=== PATIENT | female | born 1950 | race Caucasian/White ===

== ENCOUNTER → 2018-05-10 | Outpatient (CLI) | payer MEDICARE | LOC: RAD 10:00 | PROVIDERS: ATTEND Internal Medicine | DX: I35.0 Nonrheumatic aortic (valve) stenosis (principal) | CPT/HCPCS: 93306 ==

== ENCOUNTER 2018-09-26 10:23 | Inpatient (IN) | payer MEDICARE, OTHER ==
[~2018-09-26] VITALS: Ht 152.4 cm; Wt 80.0 kg
[2018-09-26] MEDS ORDERED: TRAMADOL HCL 50 MG TAB PO NR (11:00)
[2018-09-26 11:54] LABS: BASOPHILS # (AUTO) 0.1 (0.0-0.1); BASOPHILS % 0.5 % (0.0-1.0); EOSINOPHILS # (AUTO) 0.5 (0.0-0.4); EOSINOPHILS % 3.4 % (0.0-6.0); HEMOGLOBIN 11.3 g/dL (12.0-16.0); LYMPHOCYTES # (AUTO) 1.8 (1.0-3.2); LYMPHOCYTES % 11.6 % (18.0-39.1); MEAN CORPUSCULAR HEMOGLOBIN 27.2 pg (28-32); MEAN CORPUSCULAR HGB CONC 31.4 g/dL (31-35); MEAN CORPUSCULAR VOLUME 86.7 fL (81-99); MONOCYTES # (AUTO) 1.2 (0.2-0.8); MONOCYTES % 7.8 % (4.4-11.3); NEUTROPHILS % 75.5 % (38.7-80.0); PLATELET COUNT 347 x10e3/uL (140-360); RED BLOOD COUNT 4.15 x10e6/uL (3.6-5.1); RED CELL DISTRIBUTION WIDTH 15.6 % (11.7-14.4)
[2018-09-26 12:03] LABS: INR 0.97; PROTHROMBIN TIME 13.8 seconds (11.9-14.5)
[2018-09-26 12:04] LABS: PARTIAL THROMBOPLASTIN TIME 27.4 seconds (23.8-35.5)
[2018-09-26 12:10] LABS: ALBUMIN 3.5 g/dL (3.5-5.0); ALBUMIN/GLOBULIN RATIO 1.1 (0.8-2.0); ANION GAP 17.2 mmol/L (8-16); MAGNESIUM 1.7 MG/DL (1.3-2.1); POTASSIUM 4.2 mmol/L (3.5-5.1)
[2018-09-26] MEDS ORDERED: SODIUM CHLORIDE 0.9% 500ML 500 ML IV ONE (12:30)
[2018-09-26 12:31] LABS: B-TYPE NATRIURETIC PEPTIDE2 79.7 pg/mL (0-100)
[2018-09-26 12:34] LABS: CREATINE KINASE MB 0.8 ng/mL (0-5.0); THYROID STIMULATING HORMONE 1.459 uIU/mL (0.350-4.940)
--- NOTE | 2018-09-26 12:37 | NUR ---
LAB CALLED-- LACTIC ACID 24.6. DR. CALLAWAY INFORMED
[2018-09-26 13:08] LABS: CLARITY,URINE CLEAR (CLEAR); COLOR,URINE YELLOW (YELLOW)
[2018-09-26 13:09] LABS: BACTERIA,URINE RARE /HPF; BILIRUBIN,URINE NEGATIVE (NEGATIVE); KETONES,URINE NEGATIVE (NEGATIVE); LEUKOCYTE ESTERASE ,URINE NEGATIVE (NEGATIVE); NITRITE,URINE NEGATIVE (NEGATIVE); PROTEIN,URINE DIPSTICK NEGATIVE (NEGATIVE); URINE UROBILINOGEN 0.2 mg/dL (0.2 - 1)
[2018-09-26 13:10] LABS: EPITHELIAL CELLS,URINE RARE /LPF
--- NOTE | 2018-09-26 13:43 | NUR ---
[facility] SPOKE WITHJamilah YIN, SECURITY OPERATIONS CENTER ANALYST TO INITIATE TRANFER
--- NOTE | 2018-09-26 14:04 | Diagnostic Imaging Report ---
Examination: CT head without contrast Clinical Indication: Fall.. Technique: Transaxial noncontrast images from the skull base through the vertex were obtained. Sagittal and coronal reformatted images were done. Dose modulation, iterative reconstruction, and/or weight based adjustment of the mA/kV was utilized to reduce the radiation dose to as low as reasonably achievable. Comparison: None. Findings: Scalp: No abnormalities. Bones: Intact. There is a well-circumscribed, hazy lesion within the left frontal calvarium, measuring 1 cm and most probably represents a hemangioma. There are no additional similar lesions. There is bifrontal intervertebral hyperostosis. No fractures. No blastic or lytic lesions. Brain sulci: Mild volume loss for patient's age. Ventricles: No hydrocephalus. Extra-axial space: No abnormalities. Parenchyma: There are mild confluent areas of low-attenuation within subcortical and periventricular white matter, nonspecific, but could represent microvascular ischemic disease. No masses, hemorrhage, or acute or chronic cortical based vascular insults. Suprasellar region: No abnormalities. Craniocervical junction: The foramen magnum is patent. No Chiari one malformation. Impression: 1. No acute intracranial finding. 2. Mild chronic microvascular ischemic change and mild volume loss. Signed by: Dr. Nel Irby M.D. on 09/26/2018 2:01 PM
--- NOTE | 2018-09-26 14:23 | Diagnostic Imaging Report ---
Examination: CT CERVICAL SPINE WITHOUT CONTRAST HISTORY:Neck injury after fall. COMPARISON:None. TECHNIQUE: Multidetector helical axial images were obtained without contrast from the foramen magnum to T1. Coronal and sagittal reformatted images were done. Bone and soft tissue windows were evaluated. Dose modulation, iterative reconstruction, and/or weight based adjustment of the mA/kV was utilized to reduce the radiation dose to as low as reasonably achievable. FINDINGS: Alignment:Normal alignment and lordosis. Vertebrae: Normal height and density. No acute fracture or infection. There are several areas of lytic lesions involving the clivus/bases sphenoid, right occipital condyle, and C2 through T2 (vertebral body and posterior elements). Disc space heights: Normal height. Caliber of spinal canal: Developmentally normal. Posterior fossa and craniocervical junction: Foramen magnum patent. No Chiari 1 malformation. Soft tissues: No abnormality. Degenerative changes: No disc herniation or canal stenosis. Visualized lung apices: Moderate sized right pleural effusion. IMPRESSION: 1. No acute abnormalities. 2. Multiple lytic bone metastases or myeloma, as above. Signed by: Dr. Nel Irby M.D. on 09/26/2018 2:19 PM
--- NOTE | 2018-09-26 14:32 | Diagnostic Imaging Report ---
ADDENDUM #1 Addendum: Multiple lytic lesions involving the thoracic vertebral bodies, suggestive of metastasis or myeloma. No evidence of fracture. Signed by: Dr. Orion Nesbitt MD on 09/26/2018 2:36 PM ORIGINAL REPORT EXAM: CT Chest WITH contrast INDICATION: Fall COMPARISON: None TECHNIQUE: Chest was scanned utilizing a multidetector helical scanner from the lung apex through the level of the adrenal glands without administration of IV contrast. Coronal and sagittal reformations were obtained. Routine protocol was performed. IV CONTRAST: 100 mL of Isovue 370. RADIATION DOSE: Total DLP: 2092 mGy*cm COMPLICATIONS: None FINDINGS: LINES/ TUBES: None. LUNGS AND AIRWAYS: The central airways are patent. Patchy atelectasis adjacent to right-sided pleural effusion. Diffuse motion artifact limits evaluation for lung nodules. There are scattered bilateral 3 to 4 mm groundglass and solid pulmonary nodules. Groundglass nodules are present in the dependent bilateral upper lobes and along the major fissures. Clustered nodules are present in the dependent right upper lobe on series 12, image 63. There is a 5.5 mm mm solid pulmonary nodule in the middle lobe on series 12, image 68. PLEURA: There is a moderate right pleural effusion and trace left pleural effusion. HEART AND MEDIASTINUM: The thyroid gland is normal. No mediastinal, hilar or axillary lymphadenopathy. No pericardial effusion. Coronary atherosclerosis. Scattered Atherosclerotic calcifications of the thoracic aorta and branch vessels. Dilated main pulmonary artery measuring up to 3 cm. UPPER ABDOMEN: Please refer to the concurrently performed abdominal CT for details of intraabdominal findings. BONES AND SOFT TISSUES: There are subacute, nondisplaced size rib fractures, involving the right lateral second, third, fourth, posterior lateral and anterior sixth ribs. There are likely nondisplaced fractures involving the left lateral fifth and sixth ribs. There is nonspecific lytic and sclerotic appearance of the ribs, for example on axial series 10, image 17. IMPRESSION: Somewhat limited evaluation for bony trauma. Likely non-displaced acute left lateral fifth and sixth rib fractures. Multiple subacute healing right-sided rib fractures. Moderate right and trace left pleural effusion with associated atelectatic changes. Multiple mixed lytic sclerotic lesions in bilateral ribs, suggestive of metastases or myeloma. Multiple bilateral ground glass and clustered nodules, likely infectious or inflammatory. Bilateral pulmonary nodules measuring less than 6 mm. If there is a history of smoking or other risk factor for malignancy, an optional chest CT in 12 months may be considered. Please refer to the concurrently performed abdominal CT for details of intraabdominal findings. Signed by: Dr. Orion Nesbitt MD on 09/26/2018 2:29 PM
--- NOTE | 2018-09-26 14:33 | NUR ---
REPORT CALLED TO CHRISTELLE WLIKES AT [facility]--[phone]; FOR THIS PATIENT TO BE TX.
[2018-09-26] MEDS ORDERED: SODIUM CHLORIDE 0.9% 50ML 50 ML ONE (14:42)
[2018-09-26] MEDS ORDERED: IOPAMIDOL 370 MG/ML 200 ML INFUS..BTL INJ ONE (14:42)
--- NOTE | 2018-09-26 14:44 | Diagnostic Imaging Report ---
ADDENDUM #1 ADDENDUM: Dose modulation, iterative reconstruction, and/or weight based adjustment of the mA/kV was utilized to reduce the radiation dose to as low as reasonably achievable. Signed by: Dr. Orion Nesbitt MD on 09/26/2018 5:24 PM ORIGINAL REPORT EXAM: CT Abdomen and Pelvis WITH contrast INDICATION: Fall COMPARISON: None. TECHNIQUE: Abdomen and pelvis were scanned utilizing a multidetector helical scanner from the lung base to the pubic symphysis after administration of IV contrast. Coronal and sagittal reformations were obtained. Routine protocol was performed. Scan was performed when during portal venous phase. RADIATION DOSE: Total DLP: 2092 mGy*cm CTDIvol has been reviewed. It is below the limits set by the Radiation Protocol Committee (RPC). FINDINGS: LINES and TUBES: None. LOWER THORAX: Please refer to the concurrently performed chest CT. HEPATOBILIARY: No evidence of focal lesion. No biliary ductal dilation. GALLBLADDER: No radio-opaque stones or sludge. No wall thickening. SPLEEN: No splenomegaly. PANCREAS: No focal masses or ductal dilatation. ADRENALS: No adrenal nodules KIDNEYS/URETERS: Kidneys enhance symmetrically. No evidence of hydronephrosis, solid mass, or stone. GI TRACT: No evidence of wall thickening or distension. Appendix is normal. PELVIC ORGANS/BLADDER: Unremarkable. LYMPH NODES: No lymphadenopathy. VESSELS: Moderate atherosclerotic changes of the abdominal aorta and branch vessels. PERITONEUM / RETROPERITONEUM: No free air or fluid. BONES AND SOFT TISSUES: Multiple lytic lesions involving the lower thoracic and lumbar vertebral bodies without evidence of fracture. CONCLUSION: No acute traumatic abnormality in the abdomen or pelvis. Multiple lytic lesions involving lower thoracic and lumbar vertebral bodies, suggestive of metastases or myeloma. No evidence of fracture. Signed by: Dr. Orion Nesbitt MD on 09/26/2018 2:40 PM
--- NOTE | 2018-09-26 15:01 | NUR ---
PER JOSE JUAN DAVIS. HE IS CALLING TO SPEAK TO AT [facility]. HU[place]REY, FLAME BURNER AWARE. SPOKE WITH ARLYN AT [facility] TO HALT TRANSPORT.
--- NOTE | 2018-09-26 15:15 | NUR ---
RADIOLOGIST [facility] IN [place] SPEAKING WITH DR. CALLAWAY REGARDING RADIOLOGY REPORT Addendum: 09/26/18 at 1516 by KETAN SPOKE WITH TRANSFER CENTER, CANCELED TRANSFER
[2018-09-26] MEDS ORDERED: ONDANSETRON HCL INJ 2MG/ML 2ML 2 MG/ML VIAL IV PRN (17:00)
[2018-09-26] MEDS ORDERED: SODIUM CHLORIDE 0.9% 1000ML 1,000 ML IV ONE (17:00)
--- NOTE | 2018-09-26 17:09 | Diagnostic Imaging Report ---
FEMUR 2 VIEWS MINIMUM LEFT - 5 views HISTORY: Fall COMPARISON: None available. FINDINGS: Bones: No acute displaced fracture. Osseous alignment is within normal limits. Joints: Degenerative changes of the left hip. Soft tissues: The soft tissues appear unremarkable. IMPRESSION: No acute fracture or dislocation of the left femur. Signed by: Dr. Thad Patel MD on 09/26/2018 5:06 PM
[2018-09-26] MEDS ORDERED: LASIX20 MG PO (17:12)
[2018-09-26] MEDS ORDERED: RISPERIDONE1 MG PO (17:12)
[2018-09-26] MEDS ORDERED: BUSPIRONE HCL5 MG PO (17:12)
[2018-09-26] MEDS ORDERED: LOVASTATIN20 MG PO (17:12)
[2018-09-26] MEDS ORDERED: LABETALOL HCL100 MG PO (17:12)
[2018-09-26] MEDS ORDERED: FLUOXETINE HCL20 MG PO (17:12)
[2018-09-26] MEDS ORDERED: METFORMIN HCL500 MG PO (17:12)
[2018-09-26] MEDS ORDERED: LISINOPRIL2.5 MG PO (17:12)
[2018-09-26] MEDS ORDERED: PANTOPRAZOLE SO40 MG PO (17:12)
--- OUTSIDE RECORDS SUMMARY | 2018-09-26 17:19 | XMS REPORT ---
[facility] Address Unknown Phone Unavailable Care Team Providers Care Fun House Operator Name Role Phone Aristides CALLAWAY Unavailable Unavailable Problems This patient has no known problems. Allergies, Adverse Reactions, Alerts This patient has no known allergies or adverse reactions. Medications This patient has no known medications. Results Test Description Test Time Test Comments Text Results Atomic Results Result Comments FEMUR 2 VIEWS MINIMUM LEFT 2018-09-26 17:04:00 [facility] [address] [address] Patient Name: JASMYN SAMPSON MR #: [id number] : 1950 Age/Sex: 67/F Req #: [id number] Adm Physician: Ordered by: SADIA CALLAWAY MD Report #: [id number] Location: ER Room/Bed: Procedure: [id number] DX/FEMUR 2 VIEWS MINIMUM LEFT Exam Date: Exam Time: REPORT STATUS: Signed FEMUR 2 VIEWS MINIMUM LEFT - 5 views HISTORY: Fall COMPARISON: None available. FINDINGS: Bones: No acute displaced fracture. Osseous alignment is within normal limits. Joints: Degenerative changes of the left hip. Soft tissues: The soft tissues appear unremarkable. IMPRESSION: No acute fracture or dislocation of the left femur. Signed by: Dr. Thad Salazar MD on 09/26/2018 5:06 PM Dictated By: THAD SALAZAR MD 05 Transcribed By: FABIANA on 09/26/181705 COPY TO: SADIA CALLAWAY MD CT ABDOMEN/PELVIS W 2018-09-26 14:26:00 [address] [address] Patient Name: JASMYN SAMPSON MR #: [id number] : 1950 Age/Sex: 67/F Req #: [id number] Adm Physician: Ordered by: MARVEL MARTIN NP Report #: [id number] Location: ER Room/Bed: Procedure: [id number] CT/CT ABDOMEN/PELVIS W Exam Date: Exam Time: REPORT STATUS: Signed EXAM: CT Abdomen and Pelvis WITH contrast INDICATION: Fall COMPARISON: None. TECHNIQUE: Abdomen and pelvis were scanned utilizing a multidetector helical scanner from the lung base to the pubic symphysis after administration of IV contrast. Coronal and sagittal reformations were obtained. Routine protocol was performed. Scan was performed when during portal venous phase. RADIATION DOSE: Total DLP: 2092 mGy*cm CTDIvol has been reviewed. It is below the limits set by the Radiation Protocol Committee (RPC). FINDINGS: LINES and TUBES: None. LOWER THORAX: Please refer to the concurrently performed chest CT. HEPATOBILIARY: No evidence of focal lesion. No biliary ductal dilation. GALLBLADDER: No radio-opaque stones or sludge. No wall thickening. SPLEEN: No splenomegaly. PANCREAS: No focal masses or ductal dilatation. ADRENALS: No adrenal nodules KIDNEYS/URETERS: Kidneys enhance symmetrically. No evidence of hydronephrosis, solid mass, or stone. GI TRACT: No evidence of wall thickening or distension. Appendix is normal. PELVIC ORGANS/BLADDER: Unremarkable. LYMPH NODES: No lymphadenopathy. VESSELS: Moderate atherosclerotic changes of the abdominal aorta and branch vessels. PERITONEUM / RETROPERITONEUM: No free air or fluid. BONES AND SOFT TISSUES: Multiple lytic lesions involving the lower thoracic and lumbar vertebral bodies without evidence of fracture. CONCLUSION: No acute traumatic abnormality in the abdomen or pelvis. Multiple lytic lesions involving lower thoracic and lumbar vertebral bodies, suggestive of metastases or myeloma. No evidence of fracture. Signed by: Dr. Kim Duarte MD on 09/26/2018 2:40 PM Dictated By: KIM DUARTE MD 1440 Transcribed By: FABIANA on 09/26/18 1440 COPY TO: MARVEL MARTIN DRUM SEALER CT CHEST W 2018-09-26 14:11:00 [address] [address] Patient Name: JASMYN SAMPSON MR #: [id number] : 1950 Age/Sex: 67/F Req #: [id number] Adm Physician: Ordered by: MARVEL MARTIN DRUM SEALER Report #: [id number] Location: ER Room/Bed: Procedure: [id number] CT/CT CHEST W Exam Date: Exam Time: REPORT STATUS: Signed ADDENDUM #1 Addendum: Multiple lytic lesions involvi ng the thoracic vertebral bodies, suggestive of metastasis or myeloma. No evidence of fracture. Signed by: Dr. Kim Duarte MD on 09/26/2018 2:36 PM ORIGINAL REPORT EXAM: CT Chest WITH contrast INDICATION: Fall COMPARISON: None TECHNIQUE: Chest was scanned utilizing a multidetector helical scanner from the lung apex through the level of the adrenal glands without administration of IV contrast. Coronal and sagittal reformations were obtained. Routine protocol was performed. IV CONTRAST: 100 mL of Isovue 370. RADIATION DOSE: Total DLP: 2092 mGy*cm COMPLICATIONS: None FINDINGS: LINES/ TUBES: None. LUNGS AND AIRWAYS: The central airways are patent. Patchy atelectasis adjacent to right-sided pleural effusion. Diffuse motion artifact limits evaluation for lung nodules. There are scattered bilateral 3 to 4 mm groundglass and solid pulmonary nodules. Groundglass nodules are present in the dependent bilateral upper lobes and along the major fissures. Clustered nodules are present in the dependent right upper lobe on series 12, image 63. There is a 5.5 mm mm solid pulmonary nodule in the middle lobe on series 12, image 68. PLEURA: There is a moderate right pleural effusion and trace left pleural effusion. HEART AND MEDIASTINUM: The thyroid gland is normal. No mediastinal, hilar or axillary lymphadenopathy. No pericardial effusion. Coronary atherosclerosis. Scattered Atherosclerotic calcifications of the thoracic aorta and branch vessels. Dilated main pulmonary artery measuring up to 3 cm. UPPER ABDOMEN: Please refer to the concurrently performed abdominal CT for details of intraabdominal findings. BONES AND SOFT TISSUES: There are subacute, nondisplaced size rib fractures, involving the right lateral second, third, fourth, posterior lateral and anterior sixth ribs. There are likely nondisplaced fractures involving the left lateral fifth and sixth ribs. There is nonspecific lytic and sclerotic appearance of the ribs, for example on axial series 10, image 17. IMPRESSION: Somewhat limited evaluation for bony trauma. Likely non-displaced acute left lateral fifth and sixth rib fractures. Multiple subacute healing right-sided rib fractures. Moderate right and trace left pleural effusion with associated atelectatic changes. Multiple mixed lytic sclerotic lesions in bilateral ribs, suggestive of metastases or myeloma. Multiple bilateral ground glass and clustered nodules, likely infectious or inflammatory. Bilateral pulmonary nodules measuring less than 6 mm. If there is a history of smoking or other risk factor for malignancy, an optional chest CT in 12 months may be considered. Please refer to the concurrently performed abdominal CT for details of intraabdominal findings. Signed by: Dr. Kim Duarte MD on 09/26/2018 2:29 PM Dictated By: KIM DUARTE MD 1431 Transcribed By: FABIANA on 09/26/18 1421 COPY TO: MARVEL MARTIN NP CT CERVICAL SPINE WO 2018-09-26 14:02:00 [address] [address] Patient Name: JASMYN SAMPSON MR #: [id number] : 1950 Age/Sex: 67/F Req #: [id number] Adm Physician: Ordered by: MARVEL MARTIN DRUM SEALER Report #: [id number] Location: ER Room/Bed: Procedure: [id number] CT/CT CERVICAL SPINE WO Exam Date: Exam Time: REPORT STATUS: Signed Examination: CT CERVICAL SPINE WITHOUT CONTRAST HISTORY:Neck inju ry after fall. COMPARISON:None. TECHNIQUE: Multidetector helical axial images were obtained without contrast from the foramen magnum to T1. Coronal and sagittal reformatted images were done. Bone and soft tissue windows were evaluated. Dose modulation, iterative reconstruction, and/or weight based adjustment of the mA/kV was utilized to reduce the radiation dose to as low as reasonably achievable. FINDINGS: Alignment:Normal alignment and lordosis. Vertebrae: Normal height and density. No acute fracture or infection. There are several areas of lytic lesions involving the clivus/bases sphenoid, right occipital condyle, and C2 through T2 (vertebral body and posterior elements). Disc space heights: Normal height. Caliber of spinal canal: Developmentally normal. Posterior fossa and craniocervical junction: Foramen magnum patent. No Chiari 1 malformation. Soft tissues: No abnormality. Degenerative changes: No disc herniation or canal stenosis. Visualized lung apices: Moderate sized right pleural effusion. IMPRESSION: 1. No acute abnormalities. 2. Multiple lytic bone metastases or myeloma, as above. Signed by: Dr. Nel Irby M.D. on 09/26/2018 2:19 PM Dictated By: NEL MCWILLIAMS MD 18 Transcribed By: FABIANA on 09/26/181418 COPY TO: MARVEL MARTIN NP CT BRAIN WO 2018-09-26 13:56:00 [facility] [address] [address] Patient Name: JASMYN SAMPSON MR #: [id number] : 1950 Age/Sex: 67/F Req #: [id number] Adm Physician: Ordered by: MARVEL MARTIN NP Report #: [id number] Location: ER Room/Bed: Procedure: [id number] CT/CT BRAIN WO Exam Date: Exam Time: REPORT STATUS: Signed Examination: CT head without contrast Clinical Indication: Fall.. Technique : Transaxial noncontrast images from the skull base through the vertex were obtained. Sagittal and coronal reformatted images were done. Dose modulation, iterative reconstruction, and/or weight based adjustment of the mA/kV was utilized to reduce the radiation dose to as low as reasonably achievable. Comparison: None. Findings: Scalp: No abnormalities. Bones: Intact. There is a well-circumscribed, hazy lesion within the left frontal calvarium, measuring 1 cm and most probably represents a hemangioma. There are no additional similar lesions. There is bifrontal intervertebral hyperostosis. No fractures. No blastic or lytic lesions. Brain sulci: Mild volume loss for patient's age. Ventricles: No hydrocephalus. Extra-axial space: No abnormalities. Parenchyma: There are mild confluent areas of low- attenuation within subcortical and periventricular white matter, nonspecific, but could represent microvascular ischemic disease. No masses, hemorrhage, or acute or chronic cortical based vascular insults. Suprasellar region: No abnormalities. Craniocervical junction: The foramen magnum is patent. No Chiari one malformation. Impression: 1. No acute intracranial finding. 2. Mild chronic microvascular ischemic change and mild volume loss. Signed by: Dr. Nel Irby M.D. on 09/26/2018 2:01 PM Dictated By: NEL MCWILLIAMS MD 1401 Transcribed By: FABIANA on 09/26/18 1401 COPY TO: MARVEL MARTIN NP
[2018-09-26] MEDS: ACETAMINOPHEN 325 MG TAB PO PRN ×2 (17:30→23:34)
[2018-09-26 20:30] VITALS: BP 152/68
--- NOTE | 2018-09-26 20:30 | NUR ---
Patient received via stretcher, accompanied by family members. Admission history obtained from patient's sister. Initial physical assessment completed. Patient is AAO x 3. No complaints of pain. No signs of respiratory distress. IVF infusing at 75 cc / hr. Wade catheter draining pale clear yellow urine, Patient oriented to room , call light and plan of care. Bed locked and in lowest position. Bed rails up x 2. Patient instructed to call for assistance when needed. Call light within reach.
[2018-09-26 20:45] VITALS: BP 152/68
[2018-09-26 20:45] LABS: CREATINE KINASE MB 0.7 ng/mL (0-5.0)
--- NOTE | 2018-09-26 22:05 | NUR ---
Patient complained of pain to her left lower leg . Dr. Mensah notified. New order received.
[2018-09-27] VITALS (8 sets, daily range): BP systolic 116–164; BP diastolic 54–71
[2018-09-27] MEDS: HYDROCODONE/APAP 10MG-325MG TAB PO PRN ×3 (00:10→20:09)
--- NOTE | 2018-09-27 03:30 | NUR ---
Blood specimen sent to lab for analysis of cardiac enzymes.
[2018-09-27 04:30] LABS: CREATINE KINASE MB 0.7 ng/mL (0-5.0)
[2018-09-27 04:48] LABS: ALANINE AMINOTRANSFERASE 9 IU/L (0-55); ALBUMIN 2.9 g/dL (3.5-5.0); ALKALINE PHOSPHATASE 83 IU/L (40-150); ANION GAP 13.3 mmol/L (8-16); BLOOD UREA NITROGEN 15 mg/dL (7-26); BUN/CREATININE RATIO 19 (6-25); CALCIUM 9.1 mg/dL (8.4-10.2); CARBON DIOXIDE 26 mmol/L (22-29); CHLORIDE 99 mmol/L (98-107); CREATININE, SERUM 0.77 mg/dL (0.57-1.11); EST GLOMERULAR FILTRATION RATE > 60 ML/MIN (60-); GLUCOSE 162 mg/dL (74-118); SODIUM 135 mmol/L (136-145)
[2018-09-27 04:54] LABS: POTASSIUM 3.3 mmol/L (3.5-5.1)
[2018-09-27] MEDS ORDERED: DEXTROSE 50% SYRINGE 50 ML IV PRN (05:30)
[2018-09-27 05:35] LABS: BASOPHILS # (AUTO) 0.1 (0.0-0.1); BASOPHILS % 0.5 % (0.0-1.0); EOSINOPHILS # (AUTO) 0.4 (0.0-0.4); EOSINOPHILS % 3.9 % (0.0-6.0); LYMPHOCYTES # (AUTO) 2.4 (1.0-3.2); MEAN CORPUSCULAR HEMOGLOBIN 26.8 pg (28-32); MEAN CORPUSCULAR HGB CONC 30.3 g/dL (31-35); MEAN CORPUSCULAR VOLUME 88.5 fL (81-99); MONOCYTES # (AUTO) 1.4 (0.2-0.8); MONOCYTES % 12.9 % (4.4-11.3); NEUTROPHILS # (AUTO) 6.7 (2.1-6.9); NEUTROPHILS % 59.8 % (38.7-80.0); PLATELET COUNT 290 x10e3/uL (140-360); RED BLOOD COUNT 3.73 x10e6/uL (3.6-5.1); RED CELL DISTRIBUTION WIDTH 15.6 % (11.7-14.4)
--- NOTE | 2018-09-27 07:00 | NUR ---
SHIFT REPORT RECEIVED FROM NIGHT RN. PT DENIES NEEDS AT THIS TIME.
--- NOTE | 2018-09-27 07:28 | NUR ---
Shift report given to oncoming nurse. Patient resting comfortably.
[2018-09-27] MEDS: FUROSEMIDE 20 MG TAB PO SCH ×2 (08:18→17:15)
[2018-09-27] MEDS: METFORMIN HCL 500 MG TAB PO SCH ×2 (08:18→17:15)
[2018-09-27] MEDS: BUSPIRONE HCL 5 MG TAB PO SCH ×2 (08:18→17:15)
[2018-09-27] MEDS: PANTOPRAZOLE SOD 40 MG TABEC PO SCH (08:19)
[2018-09-27] MEDS: LISINOPRIL 2.5 MG TAB PO SCH (08:19)
[2018-09-27] MEDS: INSULIN REGULAR, HUMAN 100 UNIT/1 ML 3ML VIAL SQ SCH ×4 (08:19→21:00)
[2018-09-27] MEDS: LABETALOL HCL 100 MG TAB PO SCH ×2 (08:19→17:16)
[2018-09-27] MEDS: FLUOXETINE HCL 20 MG CAP PO SCH (08:19)
--- NOTE | 2018-09-27 11:00 | NUR ---
FAMILY MEMBERS FEELING THERE IS NOTHING BEING DONE. CALLED DR. BECKWITH FOR PT ORDERS.
--- NOTE | 2018-09-27 12:37 | NUR ---
CALLED AND SPOKE TO DR. MCCARTHY ABOUT CONSULT. HE WILL SEE PT THIS AFTERNOON. COMMUNICATED THIS TO THE FAMILY IN THE ROOM.
[2018-09-27 14:26] LABS: CREATINE KINASE MB 0.7 ng/mL (0-5.0)
--- NOTE | 2018-09-27 14:47 | NUR ---
Trail Maintenance Worker to bedside to discuss plan of care with patient/family. CM/SW role and care transitions discussed. Anticipated discharge plan discussed along with duration of care. CM/SW discussed patients right to make decisions in care. CM/SW work hours given. CM spoke with pt's sister and brother in law at bedside. They both have POA and the brother in law is also pt's regulatory attorney. Pt has developmental delay. Patient lives: alone in a Snf Facility ([place] [facility]) Admit/Transfer: thru ED, from home POA/Emergency contact: Brother in law Chandan Garcia [phone] and sister Penny Cunningham [phone] Current/Previous Home Health: previously had home health for PT/ST, but Chandan states he feels like there was no change in pt's status afterwards PCP/Follow-up Care: Dr. Mensah Current/Previous DME: [employer]; also has canes at home Other Services: has a provider that comes in 4 hrs a day M-F; pt is with her sister and brother in law on the weekends. Employment Status: unemployed Areas of Concerns: falls Referral Needs: may need home health or SNF. PT ordered to eval/treat Education Needs: safety IMM/ARNETT given and signed (if applicable): none at this time Goal for discharge: ideally, return home; but family is opened to SNF if needed, pending PT evaluation. CM/SW left business card at the bedside with contact information. Name and number was also written on the patients whiteboard. Patient verbalized understanding of discussion. CM will follow-up with ongoing discharge and transition of care needs.
--- NOTE | 2018-09-27 16:00 | NUR ---
PT'S FAMILY STILL UNHAPPY WITH CARE. ASKED SALINA LARRY(RN PERIOPERATIVE) TO SPEAK WITH PT'S FAMILY MEMBERS. DR. MCCARTHY ARRIVED ALSO TO VISIT WITH FAMILY MEMBERS. DR. MCCARTHY ASKED THIS NURSE TO HAVE CASE MANAGEMENT SEE PT AND FAMILY EARLY TO ARRANGE SNF PLACEMENT FOR THE PT.
--- NOTE | 2018-09-27 18:00 | NUR ---
THIS NURSE SPOKE TO PT'S FAMILY TO CONFIRM WISHES FOR SNF PLACEMENT. CONFIRMATION WAS GIVEN. THIS COMMUNICATION WAS FORWARD TO DR. BECKWITH BY SALINA (AUTOMATIC COIN MACHINE MECHANIC).
[2018-09-27] MEDS: RISPERIDONE 1 MG TAB PO SCH (18:53)
--- NOTE | 2018-09-27 19:26 | NUR ---
Patient received lying in bed. AAO x 3. Patient had no complaints of pain. Respirations even and non-labored. Bed locked and in lowest position. Bed rails up x 2. Patient instructed to call for assistance when needed. Call light within reach.
[2018-09-28] VITALS (7 sets, daily range): BP systolic 135–162; BP diastolic 62–71
[2018-09-28] MEDS: HYDROCODONE/APAP 10MG-325MG TAB PO PRN ×2 (04:22→20:01)
[2018-09-28] MEDS: INSULIN REGULAR, HUMAN 100 UNIT/1 ML 3ML VIAL SQ SCH ×4 (08:15→21:10)
--- NOTE | 2018-09-28 09:00 | NUR ---
MET WITH BROTHER IN LAW WHOM WAS CONCERNED ABOUT THE DIFFERENT LEVEL OF PLACEMENT OPPORTUNITIES AVAILABLE FOR HIS SISTER THAT HE HAS POA OVER. HE STATES SHE LIVES IN HUD HOUSING FOR SENIORS AND IDD WITH A PROVIDER FOR APPROX 19 HOURS A WEEK WHICH WAS DROPPED FROM 28. HE STATES THAT HE UNDERSTANDS THAT SHE WILL NEED SNF. EDUCATED ABOUT BORDERER CARE VERSES SNF. GAVE SENIOR RESOURCE GUIDE AND OPTION IN THE LOCAL AREA. EXPLAINED MEDICAID PENDING AND THE PROCESS. HE HAS CONCERNS THAT SHE WILL NOT RETAIN ANY INFORMATION FOR THERAPY. HE WILL GO TO THE DIFFERENT FACILITIES AND DECIDE ON WHICH ONE HE WOULD LIKE CLINICALS SENT. SPENT AN HOUR AND A HALF SPEAKING WITH HIM AND EDUCATING ON THE PROCESSES.
--- NOTE | 2018-09-28 10:00 | Consultation ---
DATE OF CONSULTATION: September 27, 2018 Consultation was requested by Dr. Kenneth Mensah. Thank you very kindly, Dr. Mensah for letting me participate in the care of this pleasant 67-year-old female whom I had seen in the past in the office. I saw her yesterday in consultation, had a lengthy visit with the family. As you are well aware, she is mentally challenged and is under the guardianship of her sister and [id number]. She was diagnosed with carcinoma of the right breast in 2000. She had surgery at [facility]. I do not have her original pathology report. It was reported that she had 1 microscopic positive node. She received postop adjuvant tamoxifen for 3 years, and in 2003 was switched to letrozole, which she took for 5 years. She had remained clinically free of disease and her last followup was nearly 2 years ago. Other comorbidities besides her limited mental faculties are diabetes and obesity. She was admitted to the hospital as she was unable to walk, it appears mostly from pain. Additional details of the history are as documented in the chart. PHYSICAL EXAMINATION: GENERAL: Revealed an obese female who appeared comfortable in bed. VITAL SIGNS: As recorded in the chart. HEENT: There was no palpable peripheral adenopathy. CHEST: Right chest wall was clear. Left breast was negative. ABDOMEN: Obese. No areas of point tenderness were noted in the bones. EXTREMITIES: She was able to move all extremities in bed. IMAGING STUDIES: Showed extensive skeletal changes consistent with metastasis. ASSESSMENT: The radiographic studies by CT are highly suggestive of metastatic disease, which is also consistent with the natural history of breast cancer, which can relapse many years later. Prognosis is guarded, but poor over the long run. Generally, skeletal metastasis in estrogen receptor positive patients is responsive to relatively simple antiestrogenic hormonal therapy. Given her mental status and her difficult social situation, which compromises intensive followup, simple strategy of treatment with fulvestrant and estrogen receptor degrading agent injected once a month and generally very well tolerated would be a simple strategy along with bone strengthening medication like denosumab. I have discussed this with the family, which is her sister and [id number]. She had been living in a senior citizen's facility, but presently would not be able to take care of herself and would require placement. Thank you for letting me participate in her care and I will follow the patient after discharge. Job#: [id number]
[2018-09-28] MEDS: FLUOXETINE HCL 20 MG CAP PO SCH (10:20)
[2018-09-28] MEDS: PANTOPRAZOLE SOD 40 MG TABEC PO SCH (10:20)
[2018-09-28] MEDS: LISINOPRIL 2.5 MG TAB PO SCH (10:20)
[2018-09-28] MEDS: LABETALOL HCL 100 MG TAB PO SCH ×2 (10:20→17:52)
[2018-09-28] MEDS: BUSPIRONE HCL 5 MG TAB PO SCH ×2 (10:20→17:52)
[2018-09-28] MEDS: FUROSEMIDE 20 MG TAB PO SCH ×2 (10:20→17:52)
[2018-09-28] MEDS: METFORMIN HCL 500 MG TAB PO SCH ×2 (10:20→17:52)
--- NOTE | 2018-09-28 19:27 | NUR ---
Patient received lying in bed. AAO x 3. Patient denies pain at this time. Wade catheter draining pale clear yellow urine. Fall precautions maintained. Patient instructed to call for assistance when needed. Call light within reach.
[2018-09-28] MEDS: RISPERIDONE 1 MG TAB PO SCH (21:00)
[2018-09-29] VITALS: BP 158/68
[2018-09-29 04:00] VITALS: BP 157/70
--- NOTE | 2018-09-29 07:20 | NUR ---
Patient resting comfortably. Shift report given to oncoming nurse.
[2018-09-29 08:01] VITALS: BP 169/72
[2018-09-29] MEDS: INSULIN REGULAR, HUMAN 100 UNIT/1 ML 3ML VIAL SQ SCH ×4 (08:30→21:00)
[2018-09-29] MEDS: ACETAMINOPHEN 325 MG TAB PO PRN (09:00)
[2018-09-29] MEDS: FLUOXETINE HCL 20 MG CAP PO SCH (09:20)
[2018-09-29] MEDS: METFORMIN HCL 500 MG TAB PO SCH ×2 (09:20→16:58)
[2018-09-29] MEDS: LISINOPRIL 2.5 MG TAB PO SCH (09:20)
[2018-09-29] MEDS: PANTOPRAZOLE SOD 40 MG TABEC PO SCH (09:20)
[2018-09-29] MEDS: FUROSEMIDE 20 MG TAB PO SCH ×2 (09:20→16:58)
[2018-09-29] MEDS: BUSPIRONE HCL 5 MG TAB PO SCH ×2 (09:20→16:58)
[2018-09-29] MEDS: LABETALOL HCL 100 MG TAB PO SCH ×2 (09:20→16:58)
--- NOTE | 2018-09-29 10:34 | Progress Note ---
DATE: September 29, 2018 SUBJECTIVE: The patient is here status post fall. The patient has been here for also pain control. Currently, the patient's pain is controlled with [place]. The patient has a history of right breast cancer with metastatic spread. Patient is currently complaining of some pain on movement. PHYSICAL EXAMINATION GENERAL: Alert and oriented x3. VITAL SIGNS: Temperature is 96.9, blood pressure is 169/72, respirations of 19, pulse of 80, and pulse ox 92% on room air. HEENT: Normocephalic, atraumatic. Pupils are reactive to light and accommodation. CVS: S1, S2 normal. Small S3 is present. ABDOMEN: Tender. Ascites is present. EXTREMITIES: No clubbing. No cyanosis and no edema present either. LABORATORY VALUES: From September 27, white count is 11,000, hemoglobin of 10, hematocrit of 33.0. Neutrophil count is normal at 6.7. MICROBIOLOGY: Urine culture did not have any growth in 36 hours. IMAGING STUDIES: Abdominal CT from September 26, 2018 shows multiple lytic lesions involving the lower thoracic and lumbar vertebrae. Chest CT shows nondisplaced acute left lateral 5th and 6th rib fracture and multiple mixed lytic sclerotic lesions in the lateral ribs. ASSESSMENT 1. Status post fall with rib fracture. 2. Metastatic bone lesions. 3. History of right breast cancer with metastatic spread. PLAN: To continue with pain management and continue monitoring the patient. A SNF consult has been ordered. Dr. Jansen has seen the patient for her metastatic cancer. Plan is to do symptomatic care. Further recommendation per clinical course. We will continue monitoring the patient. IV fluids are going. Medications reviewed. The patient is on insulin for diabetes, risperidone for depression and sundowning, labetalol for blood pressure, furosemide 20 mg daily for diuresis, BuSpar 5 mg daily, Protonix 40 mg for GI prophylaxis, and fluoxetine for depression. For further information, look in the chart. Job#: [id number] PATRICIA
[2018-09-29 15:09] VITALS: BP 149/65
[2018-09-29 18:29] VITALS: BP 164/72
[2018-09-29] MEDS: HYDROCODONE/APAP 10MG-325MG TAB PO PRN (18:49)
--- NOTE | 2018-09-29 19:35 | NUR ---
Received patient resting in bed. Denies pain at this time. Call light within reach.
[2018-09-29 20:00] VITALS: BP 158/67
[2018-09-29] MEDS: RISPERIDONE 1 MG TAB PO SCH (22:45)
[2018-09-30] VITALS (8 sets, daily range): BP systolic 103–160; BP diastolic 61–72
[2018-09-30] MEDS: ACETAMINOPHEN 325 MG TAB PO PRN (04:56)
--- NOTE | 2018-09-30 07:13 | NUR ---
Shift report given to oncoming nurse. Patient in stable condition.
[2018-09-30] MEDS: INSULIN REGULAR, HUMAN 100 UNIT/1 ML 3ML VIAL SQ SCH ×4 (08:00→21:00)
--- NOTE | 2018-09-30 09:03 | Progress Note ---
DATE: September 30, 2018 SUBJECTIVE: Patient is here for fall with a rib fracture and also for metastatic breast cancer with metastatic spread to the bones. Currently afebrile, no complaints. Pain is controlled, 2/10 in intensity. She is on hydrocodone . PHYSICAL EXAMINATION VITAL SIGNS: Temperature is 97.1, pulse of 77, respirations of 18, blood pressure is 156/69, and pulse oximetry 94% on room air. HEENT: Normocephalic, atraumatic. Pupils are reactive to light and accommodation. CVS: Chest wall tenderness present. ABDOMEN: Nontender and distended. EXTREMITIES: No clubbing. No cyanosis. Positive for trace edema. LABORATORY VALUES: None done today. Chemistries; glucose is running in the 170s to 200s. ASSESSMENT 1. Status post fall with rib fracture. 2. Metastatic breast cancer. PLAN: To continue pain management. A SNF consult has been done. We will continue to monitor the patient. All medicines reviewed. Continue same medications. Job#: [id number] DARION
[2018-09-30] MEDS: FUROSEMIDE 20 MG TAB PO SCH ×2 (09:30→17:39)
[2018-09-30] MEDS: METFORMIN HCL 500 MG TAB PO SCH ×2 (09:30→17:39)
[2018-09-30] MEDS: BUSPIRONE HCL 5 MG TAB PO SCH ×2 (09:30→17:39)
[2018-09-30] MEDS: LISINOPRIL 2.5 MG TAB PO SCH (09:30)
[2018-09-30] MEDS: LABETALOL HCL 100 MG TAB PO SCH ×2 (09:30→17:39)
[2018-09-30] MEDS: FLUOXETINE HCL 20 MG CAP PO SCH (09:30)
[2018-09-30] MEDS: PANTOPRAZOLE SOD 40 MG TABEC PO SCH (09:30)
[2018-09-30] MEDS: HYDROCODONE/APAP 10MG-325MG TAB PO PRN (16:15)
--- NOTE | 2018-09-30 18:35 | NUR ---
Patient requesting some cough medication. Paged Dr. Lopez
--- NOTE | 2018-09-30 19:28 | NUR ---
Patient received relaxing in bed. AAO x 3. No acute distress noted. Call light within reach.
[2018-09-30] MEDS: RISPERIDONE 1 MG TAB PO SCH (20:55)
[2018-10-01] VITALS (7 sets, daily range): BP systolic 124–149; BP diastolic 52–63
[2018-10-01] MEDS: HYDROCODONE/APAP 10MG-325MG TAB PO PRN (03:07)
--- NOTE | 2018-10-01 05:56 | NUR ---
Dr. Mensah here to see patient. Order received to discontinue wallace catheter.
--- NOTE | 2018-10-01 06:00 | NUR ---
Wade catheter discontinued. Patient tolerated well.
[2018-10-01] MEDS: PANTOPRAZOLE SOD 40 MG TABEC PO SCH (08:24)
[2018-10-01] MEDS: METFORMIN HCL 500 MG TAB PO SCH ×2 (08:24→17:12)
[2018-10-01] MEDS: INSULIN REGULAR, HUMAN 100 UNIT/1 ML 3ML VIAL SQ SCH ×4 (08:24→21:42)
[2018-10-01] MEDS: FLUOXETINE HCL 20 MG CAP PO SCH (08:24)
[2018-10-01] MEDS: LISINOPRIL 2.5 MG TAB PO SCH (08:24)
[2018-10-01] MEDS: LABETALOL HCL 100 MG TAB PO SCH ×2 (08:24→17:12)
[2018-10-01] MEDS: FUROSEMIDE 20 MG TAB PO SCH ×2 (08:24→17:12)
[2018-10-01] MEDS: BUSPIRONE HCL 5 MG TAB PO SCH ×2 (08:24→17:12)
[2018-10-01] MEDS ORDERED: GUAIFENESIN 200 MG/10 ML UDC PO PRN (19:45)
[2018-10-01] MEDS ORDERED: SODIUM CHLORIDE 0.9% 250ML 250 ML ONE (21:43)
[2018-10-01] MEDS: METRONIDAZOLE 500MG/NS 100ML 100 ML IV SCH (21:50)
[2018-10-01] MEDS: GUAIFENESIN/DEXTROMETHORPHAN LIQD 5 ML UDC NG PRN (21:50)
[2018-10-01] MEDS: RISPERIDONE 1 MG TAB PO SCH (21:50)
[2018-10-02] VITALS (7 sets, daily range): BP systolic 125–147; BP diastolic 50–81
[2018-10-02] MEDS: METRONIDAZOLE 500MG/NS 100ML 100 ML IV SCH ×2 (05:13→14:00)
[2018-10-02 05:25] LABS: BASOPHILS # (AUTO) 0.1 (0.0-0.1); BASOPHILS % 0.8 % (0.0-1.0); EOSINOPHILS # (AUTO) 0.4 (0.0-0.4); EOSINOPHILS % 2.8 % (0.0-6.0); HEMATOCRIT 34.7 % (34.2-44.1); HEMOGLOBIN 10.7 g/dL (12.0-16.0); LYMPHOCYTES # (AUTO) 2.5 (1.0-3.2); LYMPHOCYTES % 19.5 % (18.0-39.1); MEAN CORPUSCULAR HEMOGLOBIN 26.8 pg (28-32); MEAN CORPUSCULAR HGB CONC 30.8 g/dL (31-35); MONOCYTES # (AUTO) 1.1 (0.2-0.8); MONOCYTES % 8.5 % (4.4-11.3); NEUTROPHILS # (AUTO) 8.4 (2.1-6.9); NEUTROPHILS % 66.7 % (38.7-80.0); PLATELET COUNT 421 x10e3/uL (140-360); RED BLOOD COUNT 3.99 x10e6/uL (3.6-5.1)
[2018-10-02] MEDS: ACETAMINOPHEN 325 MG TAB PO PRN (05:48)
[2018-10-02] MEDS: GUAIFENESIN/DEXTROMETHORPHAN LIQD 5 ML UDC NG PRN ×2 (05:48→20:49)
[2018-10-02 06:01] LABS: ALANINE AMINOTRANSFERASE 11 IU/L (0-55); ALBUMIN 2.9 g/dL (3.5-5.0); ALBUMIN/GLOBULIN RATIO 0.8 (0.8-2.0); ALKALINE PHOSPHATASE 89 IU/L (40-150); ANION GAP 15.6 mmol/L (8-16); BLOOD UREA NITROGEN 12 mg/dL (7-26); BUN/CREATININE RATIO 16 (6-25); CALCIUM 9.9 mg/dL (8.4-10.2); CARBON DIOXIDE 28 mmol/L (22-29); CHLORIDE 99 mmol/L (98-107); CREATININE, SERUM 0.74 mg/dL (0.57-1.11); EST GLOMERULAR FILTRATION RATE > 60 ML/MIN (60-); GLUCOSE 128 mg/dL (74-118); POTASSIUM 3.6 mmol/L (3.5-5.1); SODIUM 139 mmol/L (136-145)
[2018-10-02] MEDS: INSULIN REGULAR, HUMAN 100 UNIT/1 ML 3ML VIAL SQ SCH ×4 (07:30→20:49)
[2018-10-02] MEDS: LISINOPRIL 2.5 MG TAB PO SCH (08:40)
[2018-10-02] MEDS: LABETALOL HCL 100 MG TAB PO SCH ×2 (08:40→17:17)
[2018-10-02] MEDS: METFORMIN HCL 500 MG TAB PO SCH ×2 (08:40→17:17)
[2018-10-02] MEDS: FLUOXETINE HCL 20 MG CAP PO SCH (08:40)
[2018-10-02] MEDS: FUROSEMIDE 20 MG TAB PO SCH ×2 (08:40→17:17)
[2018-10-02] MEDS: BUSPIRONE HCL 5 MG TAB PO SCH ×2 (08:40→17:17)
[2018-10-02] MEDS: PANTOPRAZOLE SOD 40 MG TABEC PO SCH (08:40)
--- NOTE | 2018-10-02 14:21 | NUR ---
WENT TO ROOM AND WAS TOLD BY BROTHER IN LAW THEY DO NOT WANT ASSISTED PLACEMENT. THEY WANT OUTPATIENT REHAB AND FOR HER TO RETURN HOME TO HER APARTMENT, IF SHE IS UNABLE TO RETURN TO HER APARTMENT THEY TAKE HER HOME WITH THEM.
--- NOTE | 2018-10-02 16:12 | NUR ---
CM SPOKE TO PATIENT AT BEDSIDE. PATIENT ALERT AND ORIENTED. PATIENT INFORMED OF OUTPATIENT PHYSICAL THERAPY SERVICES AND MD ORDER TO START SERVICES. PATIENT VERBALLY AGREED TO GO TO OUT PATIENT PHYSICAL THERAPY. PATIENT GIVEN OPTIONS FOR OUTPATIENT PHYSICAL THERAPY. PATIENT CHOSE [facility]. PATIENT ASKED IF SHE WOULD HAVE TRANSPORTATION TO AND FROM FACILITY. PATIENT STATES HER SISTER WILL BE THE ONE TRANSPORTING HER TO AND FROM APPOINTMENTS. CHOICE LETTER SIGNED AND PLACED IN CHART. CLINICAL SENT TO [facility] OUTPATIENT OFFICE: [phone]. OUTPATIENT PT DIRECTOR LIZBETH INFORMED OF INCOMING REFERRAL DURING INTERDISCIPLINARY ROUNDS. PENDING INSURANCE AUTH AND ACCEPTANCE. [facility] Outpatient Therapy Services [address] [facility] [address] [place] [id number]
--- NOTE | 2018-10-02 18:18 | NUR ---
Nutrition Screen Note RD Recommendation for Physician: -Continue ADA diet as ordered Plan of Care: RD following, monitoring for tolerance and adequacy Nutrition reason for involvement: LOS Primary Diagnose(s): 1. Status post fall with rib fracture. 2. Metastatic breast cancer. PMH: carcinoma of the right breast, DM, obesity, hearing impairment Ht: 60in Wt: 158.5lb BMI: 31kg/m2 IBW: 100lb RD Assessment: (10/02) Chart reviewed. Labs and meds reviewed. 67yo F, who is admitted for fall with rib fx. Visited pt in the room. Sister presents on bedside to provide hx. Pt has had good appetite since admission. RN recorded 75-100% meal intake. No GI complains noted. LBM 10/01, diarrhea possibly due to meds. Pt denies any chewing or swallowing difficulty. No recent weight loss reported. Will continue to monitor and follow. Current Diet: ADA diet Malnutrition Evaluation (10/02/2018) The patient does not meet criteria for a specified degree of malnutrition at this time. Will re-evaluate at follow-up as appropriate. Diet Education Needs Assessment: Diet education not indicated. Nutrition Care Level: low Signed: Azul Pacheco, MS, RD, LD
[2018-10-02] MEDS: RISPERIDONE 1 MG TAB PO SCH (20:49)
[2018-10-02] MEDS: HYDROCODONE/APAP 10MG-325MG TAB PO PRN (20:50)
[2018-10-03 00:11] VITALS: BP 103/48
[2018-10-03 05:30] VITALS: BP 189/86
[2018-10-03] MEDS: INSULIN REGULAR, HUMAN 100 UNIT/1 ML 3ML VIAL SQ SCH (08:30)
[2018-10-03] MEDS: PANTOPRAZOLE SOD 40 MG TABEC PO SCH (08:58)
[2018-10-03] MEDS: FUROSEMIDE 20 MG TAB PO SCH (08:58)
[2018-10-03] MEDS: LABETALOL HCL 100 MG TAB PO SCH (08:58)
[2018-10-03] MEDS: FLUOXETINE HCL 20 MG CAP PO SCH (08:58)
[2018-10-03] MEDS: METFORMIN HCL 500 MG TAB PO SCH (08:58)
[2018-10-03] MEDS: BUSPIRONE HCL 5 MG TAB PO SCH (08:58)
[2018-10-03] MEDS: LISINOPRIL 2.5 MG TAB PO SCH (08:58)
[2018-10-03 09:00] VITALS: BP 149/57
[2018-10-03 11:51] VITALS: BP 164/67
--- NOTE | 2018-10-03 11:55 | NUR ---
Discharge instructions given to the patient and her brother-in law, they verbalized understanding. IV's to the left FA and AC were removed with tip intact.
--- NOTE | 2018-10-03 12:05 | NUR ---
Patient left the floor via wheelchair, she is discharged home.
--- NOTE | 2018-10-03 13:44 | NUR ---
IMM GIVEN WITH EXPLANATION. SIGNED COPY PLACED IN CHART. COPY OF SIGNED DOCUMENT PLACED IN CARE TRANSITION FOLDER AT BEDSIDE. PATIENT ENCOURAGED TO BRING FOLDER TO FOLLOW UP MD APPOINTMENT AND ENCOURAGED TO MAKE THE FOLLOW UP MD APPOINTMENT WITHIN 7 DAYS. PATIENT VERBALLY AGREED
--- NOTE | 2018-11-04 22:18 | Discharge Summary ---
DISCHARGE DIAGNOSES 1. Status post fall, 2 rib fractures on the left. 2. Also recurrent metastatic breast cancer to the bone. 3. Diabetes. 4. Hypertension. HISTORY OF PRESENT ILLNESS AND HOSPITAL COURSE: Patient is a 67-year-old lady who had a fall and sustained 2 left rib fractures but then on her workup, she was noticed to have new lytic lesions consistent with metastatic disease, most likely from her breast cancer in the past but with discussion with the family as well as with her oncologist, they are going to like to do monthly medications for the cancer, and they did not want any further workup at this time as far as biopsies. I had a long discussion with the family about hospice versus longterm facility at this time. They are going to consider it but they would like to take her home, and at the time of discharge, she was doing much better with her pain control. She was discharged home with p.o. medications and told to follow up in 1 to 2 weeks with me as well as with Dr. Jansen. Please see hospital chart for full details. Job#: [id number] SMITA
== END 2018-10-03 12:04 | disposition home or self-care (01) | DRG 543 ==
LOC: ER 10:23 → ERHOLD 17:16 → MED/SURG2 19:58
PROVIDERS: ADMIT Internal Medicine; ATTEND Internal Medicine
DX: M84.58XA Pathological fracture in neoplastic disease, other specified site, initial encounter for fracture (principal); C79.51 Secondary malignant neoplasm of bone; S22.43XA Multiple fractures of ribs, bilateral, initial encounter for closed fracture; A04.72 Enterocolitis due to Clostridium difficile, not specified as recurrent; M89.9 Disorder of bone, unspecified; I10 Essential (primary) hypertension; D64.9 Anemia, unspecified; E11.9 Type 2 diabetes mellitus without complications; C50.919 Malignant neoplasm of unspecified site of unspecified female breast; W01.0XXA Fall on same level from slipping, tripping and stumbling without subsequent striking against object, initial encounter; Z79.4 Long term (current) use of insulin
CPT/HCPCS: 36415; 51700; 70450; 71260; 72125; 74177; 80053; 81001; 82550; 82553; 82948; 83605; 83690; 83735; 83880; 84443; 84484; 85025; 85610; 85730; 87086; 87493; 93005; 93970; 96372; 97139; 99284; J2405; J7030; J7040; J7050; Q9967

== ENCOUNTER 2021-07-31 12:07 | Emergency (ER) | payer MEDICARE, OTHER ==
[~2021-07-31] VITALS: Ht 152.4 cm; Wt 79.8 kg
[~2021-07-31 12:07] MED LIST: BUSPIRONE HCL5 MG PO; FLUOXETINE HCL20 MG PO; LABETALOL HCL100 MG PO; LASIX20 MG PO; LISINOPRIL2.5 MG PO; LOVASTATIN20 MG PO; METFORMIN HCL500 MG PO; PANTOPRAZOLE SO40 MG PO; RISPERIDONE1 MG PO
== END 2021-07-31 15:12 ==
LOC: ER 12:20
DX: S82.842A Displaced bimalleolar fracture of left lower leg, initial encounter for closed fracture (principal); E66.9 Obesity, unspecified; Z91.030 Bee allergy status; Z68.34 Body mass index [BMI] 34.0-34.9, adult
CPT/HCPCS: 99284

== ENCOUNTER 2022-01-03 20:43 | Emergency (ER) | payer MEDICARE, OTHER ==
[~2022-01-03] VITALS: Ht 152.4 cm; Wt 79.8 kg
[2022-01-03] MEDS ORDERED: HYDROCODONE/APAP 5MG-325MG TAB PO ONE (23:00)
[2022-01-03] MEDS ORDERED: HYDROCODONE/APAP 5MG-325MG TAB ONE (23:16)
== END 2022-01-04 00:06 | disposition home or self-care (01) ==
LOC: ER 21:00
DX: S00.83XA Contusion of other part of head, initial encounter (principal); W19.XXXA Unspecified fall, initial encounter; Y93.01 Activity, walking, marching and hiking; Y92.128 Other place in nursing home as the place of occurrence of the external cause; I10 Essential (primary) hypertension; E11.9 Type 2 diabetes mellitus without complications; D64.9 Anemia, unspecified; F32.A Depression, unspecified; R62.59 Other lack of expected normal physiological development in childhood; Z85.828 Personal history of other malignant neoplasm of skin; Z85.3 Personal history of malignant neoplasm of breast
CPT/HCPCS: 70450; 71045; 72125; 72170; 99284